=== PATIENT | female | born 1995 | race Caucasian/White ===

== ENCOUNTER 2017-06-21 11:42 | Emergency (ER) | payer OTHER ==
[~2017-06-21] VITALS: Ht 162.6 cm; Wt 97.5 kg
== END 2017-06-21 12:50 | disposition home or self-care (01) ==
LOC: ER 11:42
DX: O99.511 Diseases of the respiratory system complicating pregnancy, first trimester (principal); J06.9 Acute upper respiratory infection, unspecified
CPT/HCPCS: 81025; 87081; 87430; 99282

== ENCOUNTER → 2017-07-24 | Outpatient (CLI) | payer OTHER ==
[2017-07-25 09:56] LABS: Source Vagina
== END | disposition home or self-care (01) ==
LOC: LAB 16:50
PROVIDERS: Obstetrics & Gynecology
DX: O99.89 Other specified diseases and conditions complicating pregnancy, childbirth and the puerperium (principal); R30.0 Dysuria
CPT/HCPCS: 87077; 87086; 87186; 87491; 87591; 87661

== ENCOUNTER → 2017-09-20 | Outpatient (CLI) | payer OTHER ==
[2017-09-22 21:08] LABS: CHLAMYDIA TRACHOMATIS, NAA Negative (Negative); NEISSERIA GONORRHOEAE, NAA Negative (Negative)
== END ==
LOC: LAB SHORT 16:16 → LAB 16:16
PROVIDERS: Obstetrics & Gynecology
DX: R30.0 Dysuria (principal); Z20.2 Contact with and (suspected) exposure to infections with a predominantly sexual mode of transmission
CPT/HCPCS: 87077; 87086; 87186; 87491; 87591

== ENCOUNTER → 2017-10-23 | Outpatient (CLI) | payer OTHER | LOC: LAB SHORT 16:40 → LAB 16:40 | DX: R30.0 Dysuria (principal) | CPT/HCPCS: 87077; 87086; 87186 ==